=== PATIENT | male | born 1950 | race Caucasian/White ===

== ENCOUNTER → 2016-08-20 | Outpatient (CLI) | payer OTHER ==
[2016-08-20 13:33] LABS: ESTIMATED AVERAGE GLUCOSE 171 mg/dl; HA1C FLAG Normal (Normal)
[2016-08-20 13:36] LABS: ALT/SGPT 37 U/L (12-78); BLOOD UREA NITROGEN 12 mg/dl (7-18); BUN/CREATININE RATIO 12.6 (10-20); CALCIUM 9.3 mg/dl (8.5-10.1); CARBON DIOXIDE 26 mmol/L (21-32); CHLORIDE 101 mmol/L (98-107); CHOLESTEROL 150 mg/dl (0-200); CREATININE 0.95 mg/dl (0.60-1.40); GLUCOSE 209 mg/dl (70-99); POTASSIUM 4.3 mmol/L (3.5-5.1); SODIUM 136 mmol/L (136-145); TRIGLYCERIDES 166 mg/dl (0-150); VERY LOW DENSITY LIPOPROT CALC 33 mg/dl
[2016-08-20 13:46] LABS: ALB/GLOB RATIO 1.2 (0.9-2); ALKALINE PHOSPHATASE 39 U/L (45-117); AST/SGOT 28 U/L (15-37); CHOLESTEROL/HDL RATIO 3.7; HDL CHOLESTEROL 41 mg/dl; LDL CHOLESTEROL CALCULATED 76 mg/dl; THYROID STIMULATING HORMONE 0.801 uIu/ml (0.300-4.500)
== END | disposition home or self-care (01) ==
LOC: C.LABPVFM 08:04
PROVIDERS: ATTEND Nurse Practitioner Family
DX: E78.5 Hyperlipidemia, unspecified (principal); I10 Essential (primary) hypertension; E03.9 Hypothyroidism, unspecified; E11.9 Type 2 diabetes mellitus without complications

== ENCOUNTER → 2016-11-19 | Outpatient (CLI) | payer OTHER ==
[2016-11-19 12:27] LABS: BASO % 0.3 %; BASO ABS # 0.02 K/uL (0-0.2); COMPLETE YES; EOS % 3.7 %; HEMATOCRIT 38.3 % (42-52); IG% 0.3 %; LYMPH % 25.5 %; MEAN CELL VOLUME 86.3 fL (80-100); MEAN CORPUSCULAR HEMOGLOBIN 30.9 pg (25-34); MEAN CORPUSCULAR HGB CONC 35.8 g/dl (32-36); MEAN PLATELET VOLUME 9.8 fL (7.4-10.4); MONO % 9.8 %; NEUT % 60.4 %; PLATELET COUNT 261 K/uL (130-400); RED BLOOD COUNT 4.44 M/uL (4.7-6.1); WHITE BLOOD COUNT 7.07 K/uL (4.8-10.8)
[2016-11-19 12:42] LABS: BLOOD UREA NITROGEN 16 mg/dl (7-18); C-REACTIVE PROTEIN < 0.29 mg/dl (0-0.29); CALCIUM 9.6 mg/dl (8.5-10.1); CARBON DIOXIDE 24 mmol/L (21-32); CHLORIDE 101 mmol/L (98-107); GLUCOSE 278 mg/dl (70-99); POTASSIUM 4.1 mmol/L (3.5-5.1); SODIUM 134 mmol/L (136-145)
[2016-11-19 12:43] LABS: RHEUMATOID FACTOR < 10.0 U/mL (0-15)
[2016-11-19 13:07] LABS: LYME DISEASE AB IGG NEG (NEG)
[2016-11-19 13:10] LABS: LYME DISEASE AB IGM NEG (NEG)
[2016-11-20 08:01] LABS: ESTIMATED AVERAGE GLUCOSE 166 mg/dl; HA1C FLAG Normal (Normal)
--- NOTE | 2016-11-25 10:44 | CODING QUERY MEDICAL NECESSITY ---
SUPPORTING DIAGNOSIS NEEDED Leoncio CELESTE, A supporting diagnosis is required for the test/procedure performed on this patient in order for us to be reimbursed by the patient's insurance. Please provide a supporting diagnosis for the following test/procedure listed below next to the test name along with your signature. *If there is no additional diagnosis for this patient that would support the following test/procedure please document that below next to the test/procedure. Test(s)/Procedure(s) that require a supporting diagnosis: * VITAMIN D ASSAY DIAGNOSIS: DATE OF SERVICE: 11/19/16 Provider Signature: Date: Thank you Kev Gill [facility] Information Management Once completed, please kindly fax back to [phone] For questions please call [phone]
== END | disposition home or self-care (01) ==
LOC: C.LABPVFM 08:37
PROVIDERS: ATTEND Nurse Practitioner Family
DX: E11.9 Type 2 diabetes mellitus without complications (principal); M25.50 Pain in unspecified joint

== ENCOUNTER → 2017-01-18 | Outpatient (CLI) | payer OTHER | END | disposition home or self-care (01) | LOC: C.LABPVFM 07:34 | PROVIDERS: ATTEND Nurse Practitioner Family | DX: E55.9 Vitamin D deficiency, unspecified (principal) ==

== ENCOUNTER → 2017-01-27 | Outpatient (CLI) | payer OTHER | END | disposition home or self-care (01) | LOC: C.LABPVFM 07:36 | PROVIDERS: ATTEND Nurse Practitioner Family | DX: R25.2 Cramp and spasm (principal) ==

== ENCOUNTER → 2017-02-14 | Outpatient (CLI) | payer OTHER ==
[2017-02-14 12:50] LABS: ALT/SGPT 30 U/L (12-78); AST/SGOT 22 U/L (15-37); BLOOD UREA NITROGEN 15 mg/dl (7-18); BUN/CREATININE RATIO 12.2 (10-20); CALCIUM 10.1 mg/dl (8.5-10.1); CARBON DIOXIDE 26 mmol/L (21-32); CHLORIDE 105 mmol/L (98-107); GLUCOSE 195 mg/dl (70-99); POTASSIUM 4.1 mmol/L (3.5-5.1); SODIUM 140 mmol/L (136-145)
[2017-02-14 13:01] LABS: ALB/GLOB RATIO 1.1 (0.9-2); ALKALINE PHOSPHATASE 41 U/L (45-117); PROSTATE SPECIFIC ANTIGEN 0.844 ng/ml (0.000-4.000)
--- NOTE | 2017-02-17 10:31 | CODING QUERY NO DIAGNOSIS ---
: 1950 TREATMENT RENDERED WITHOUT A DIAGNOSIS To promote full compliance with coding requirements relating to patient care, physician participation is requested in all cases of health information coder uncertainty. Please assist us with providing a diagnosis/symptom for the test(s) below: A diagnosis/symptom was not documented on your Order. A valid diagnosis/symptom is required to bill all insurances. Please remember that we are unable to code a diagnosis of rule out, probable, possible, questionable, or suspected. Tests that require a diagnosis: DOS: 02/14/17 * LIPID PROFILE FASTING DIAGNOSIS: * COMPREHENSIVE METABOLC PANEL DIAGNOSIS: * PROSTATE SPECIFIC ANTIGEN DIAGNOSIS: * THYROID STIMULATING HORMONE DIAGNOSIS: * HEMOGLOBIN A1C DIAGNOSIS: Provider Signature: Date: Thank you Sarah Holliday [facility] Information Management Once completed, please kindly fax back to [phone] For questions please call [phone]
== END | disposition home or self-care (01) ==
LOC: C.LABPVFM 07:38
PROVIDERS: ATTEND Nurse Practitioner Family
DX: E78.5 Hyperlipidemia, unspecified (principal); I10 Essential (primary) hypertension; Z12.5 Encounter for screening for malignant neoplasm of prostate; E03.9 Hypothyroidism, unspecified; E11.9 Type 2 diabetes mellitus without complications

== ENCOUNTER → 2017-05-20 | Outpatient (CLI) | payer OTHER ==
[2017-05-20 13:06] LABS: HEMOGLOBIN A1C 8.8 % (4.5-5.6)
== END | disposition home or self-care (01) ==
LOC: C.LABPVFM 09:22
PROVIDERS: ATTEND Nurse Practitioner Family
DX: E11.9 Type 2 diabetes mellitus without complications (principal)

== ENCOUNTER → 2017-05-26 | Outpatient (CLI) | payer OTHER | END | disposition home or self-care (01) | LOC: C.LABPVFM 10:01 | PROVIDERS: ATTEND Nurse Practitioner Family | DX: E11.9 Type 2 diabetes mellitus without complications (principal) ==

== ENCOUNTER → 2017-06-27 | Day surgery (SDC) | payer OTHER ==
[2017-06-14 14:10] VITALS: BMI 33.0
[~2017-06-27] VITALS: Ht 170.2 cm; Wt 98.2 kg
[~2017-06-27] MED LIST: ASPCH81X PO; CHOL2000 PO; GLIM2TAB2 PO; LEVO25TA5 PO; LINA1TAB6 PO; LISI-729 PO; LPR25 PO; NAPR1TAB9 PO; SIMV40TA2 PO; TRIA75TA53 PO
[2017-06-27 08:21] VITALS: Ht 170.2 cm; Wt 98.2 kg
--- NOTE | 2017-06-27 08:41 | Endo History and Physical ---
History & Physical Date of Service: Jun 27, 2017. Chief Complaint: SCREENING Referring Physician: RSUSELL CELESTE History of Present Illness 67 yo CM who presents for screening colonoscopy. Past Surgical History Hx Cardiac Surgery: No Hx Internal Defibrillator: No Hx Pacemaker: No Hx Abdominal Surgery: No Hx of Implantable Prosthesis: No Hx Post-Op Nausea and Vomiting: No Hx Cancer Surgery: No Hx Thoracic Surgery: No Hx Orthopedic: No Hx Urinary Tract Surgery: No Family History None Social History Smoking Status: Never Smoker Hx Substance Use: No Hx Alcohol Use: Yes (OCCASIONALLY) Allergies Coded Allergies: Diphenhydramine (Verified Allergy, Unknown, RASH FROM MED ? RED DYE, ) Current Medications Reported Home Medications Medications Dose Route/Sig Max Daily Dose Days Date Category Vitamin D3 (Cholecalciferol) 2,000 Unit Cap 1 Cap PO QAM 06/14/17 Reported Zocor (Simvastatin) 40 Mg Tab 40 Mg PO QPM 06/14/17 Reported Aleve (Naproxen) 220 Mg Tab 2 Tab PO QAM 06/14/17 Reported Lopressor (Metoprolol Tartrate) 25 Mg Tab 25 Mg PO QAM 06/14/17 Reported Zestril (Lisinopril) 5 Mg Tab 5 Mg PO QAM 06/14/17 Reported Levothyroxine Sodium 25 Mcg Tab 1 Tab PO QAM 06/14/17 Reported Jentadueto (Linagliptin-Metformin Hcl) 1 Tab Tab 1 Tab PO BID 06/14/17 Reported Glimepiride 2 Mg Tab 1 Tab PO BID 06/14/17 Reported Aspirin Chewable (Aspirin) 81 Mg Chew 81 Mg PO QAM 06/14/17 Reported Maxzide 75MG/50MG (Triamterene/HCTZ) Tab 1 Tab PO QAM 06/14/17 Reported Vital Signs Weight (Kilograms): 98.18 Height (Feet): 5 Height (Inches): 7 Date Time Temp Pulse Resp B/P (MAP) Pulse Ox O2 Delivery O2 Flow Rate FiO2 06/27/17 08:33 36.8 79 18 154/91 (112) 96 Room Air Physical Exam General Appearance: WD/WN, no apparent distress Respiratory/Chest: Auscultation: breath sounds normal Cardiovascular: Heart Auscultation: RRR Abdomen: Bowel Sounds: normal Inspection & Palpation: soft, non-distended, no tenderness, guarding & rebound Assessment and Plan Assessment: 67 yo CM who presents for screening colonoscopy. Plan: Proceed with colonoscopy.
--- NOTE | 2017-06-27 09:06 | Discharge Instructions ---
Endoscopy Patient Instructions Date / Procedure(s) Performed Jun 27, 2017. Colonoscopy Allergy Information Coded Allergies: Diphenhydramine (Verified Allergy, Unknown, RASH FROM MED ? RED DYE, ) Discharge Date / Findings Jun 27, 2017. Diverticulosis Internal hemorrhoids Medication Instructions Stopped Medication(s): NONE TAKEN OK to resume all medications today as prescribed Reported Home Medications Medications Dose Route/Sig Max Daily Dose Days Date Category Vitamin D3 (Cholecalciferol) 2,000 Unit Cap 1 Cap PO QAM 06/14/17 Reported Zocor (Simvastatin) 40 Mg Tab 40 Mg PO QPM 06/14/17 Reported Aleve (Naproxen) 220 Mg Tab 2 Tab PO QAM 06/14/17 Reported Lopressor (Metoprolol Tartrate) 25 Mg Tab 25 Mg PO QAM 06/14/17 Reported Zestril (Lisinopril) 5 Mg Tab 5 Mg PO QAM 06/14/17 Reported Levothyroxine Sodium 25 Mcg Tab 1 Tab PO QAM 06/14/17 Reported Jentadueto (Linagliptin-Metformin Hcl) 1 Tab Tab 1 Tab PO BID 06/14/17 Reported Glimepiride 2 Mg Tab 1 Tab PO BID 06/14/17 Reported Aspirin Chewable (Aspirin) 81 Mg Chew 81 Mg PO QAM 06/14/17 Reported Maxzide 75MG/50MG (Triamterene/HCTZ) Tab 1 Tab PO QAM 06/14/17 Reported Provider Instructions Activity Restrictions - No exercising or heavy lifting for 24 hours. - Do not drink alcohol the day of the procedure. - Do not drive a car or operate machinery until the day after the procedure. - Do not make any important decisions or sign important papers in 24 hours after the procedure. Following Day: - Return to full activity which may include returning to work/school. Diet Start your diet with liquids and light foods (jello, soup, juice, toast). Then eat your usual diet if not nauseated. Treatment For Common After Affects For mild abdominal pain, bloating, or excessive gas: - Rest - Eat lightly - Lie on right side Follow-Up Information Follow-up with RUSSELL CELESTE as scheduled Anesthesia Information What You Should Know You have had a procedure that required some medicine to reduce anxiety and discomfort. This treatment is called moderate sedation. After receiving the treatment, you may be sleepy, but you will be able to breathe on your own. The effects of the treatment may last for several hours. Follow these instructions along with Activity/Diet recommendations noted above: * Do NOT do anything where dizziness or clumsiness would be dangerous. * Rest quietly at home today, then you can be up and about tomorrow. * Have a responsible person stay with you the rest of today. * You may have had an I.V. today. If so, you may take the dressing off later today. Recommendations Call your doctor if: * Trouble breathing * Continuous vomiting for more than 24 hours * Temperature above 101 degrees * Severe abdominal pain or bloating * Pain not relieved by pain medicine ordered * There is increased drainage or redness from any incision * A large amount of rectal bleeding greater than 2-3 tablespoons. (If you had a polyp/s removed or have hemorrhoids, a small amount of blood - from the rectum is to be expected.) * You have any unanswered questions or concerns. IN THE EVENT OF A SERIOUS EMERGENCY, GO TO THE NEAREST EMERGENCY ROOM Your discharge instructions were prepared by provider Eric Washburn. Patient Instructions Signature Page Omar Echevarria Patient (or Guardian) Signature/Date: I have read and understand the instructions given to me by my caregivers. Caregiver/RN/Doctor Signature/Date: The above-named patient and/or guardian has received patient instructions on this date. + Original Patient Signature Page (only) stays with chart. Please make copy for patient.
--- NOTE | 2017-06-27 09:09 | GI REPORT ---
Procedure Date: 06/27/2017 8:43 AM Procedure: Colonoscopy Indications: Screening for colorectal malignant neoplasm Medicines: Monitored Anesthesia Care Complications: No immediate complications. Estimated Blood Loss: Estimated blood loss: none. Procedure: Pre-Anesthesia Assessment: - Prior to the procedure, a History and Physical was performed, and patient medications and allergies were reviewed. The patient's tolerance of previous anesthesia was also reviewed. The risks and benefits of the procedure and the sedation options and risks were discussed with the patient. All questions were answered, and informed consent was obtained. Prior Anticoagulants: The patient has taken no previous anticoagulant or antiplatelet agents. ASA Grade Assessment: II - A patient with mild systemic disease. After reviewing the risks and benefits, the patient was deemed in satisfactory condition to undergo the procedure. After I obtained informed consent, the scope was passed under direct vision. Throughout the procedure, the patient's blood pressure, pulse, and oxygen saturations were monitored continuously. The scope was introduced through the anus and advanced to the terminal ileum. The colonoscopy was performed without difficulty. The patient tolerated the procedure well. The quality of the bowel preparation was good. The terminal ileum, ileocecal valve, appendiceal orifice, and rectum were photographed. Findings: The perianal and digital rectal examinations were normal. Scattered small-mouthed diverticula were found in the entire colon. Non-bleeding internal hemorrhoids were found during retroflexion. The hemorrhoids were small. Impression: - Diverticulosis in the entire examined colon. - Non-bleeding internal hemorrhoids. - No specimens collected. Recommendation: - Resume previous diet. - Continue present medications. - Repeat colonoscopy in 10 years for surveillance. - Return to primary care physician as previously scheduled. Eric Washburn, DO 06/27/2017 9:09:07 AM This report has been signed electronically. Note Initiated On: 06/27/2017 8:43 AM I attest to the content of the Intraoperative Record and orders documented therein, exceptions below
--- NOTE | 2017-06-27 09:21 | Anesthesiology Progress Note ---
Anesthesia Post Op Note Date & Time Jun 27, 2017 at 09:21 Vital Signs Pain Intensity: 0 Vital Signs Past 12 Hours Date Time Temp Pulse Resp B/P (MAP) Pulse Ox O2 Delivery O2 Flow Rate FiO2 06/27/17 09:06 65 16 105/63 (77) 96 Room Air 06/27/17 08:33 36.8 79 18 154/91 (112) 96 Room Air Notes Mental Status: alert / awake / arousable, participated in evaluation Pt Amnestic to Procedure: Yes Nausea / Vomiting: adequately controlled Pain: adequately controlled Airway Patency, RR, SpO2: stable & adequate BP & HR: stable & adequate Hydration State: stable & adequate Anesthetic Complications: no major complications apparent Awake, doing well, VSS.
[2017-06-27 09:36] VITALS: BP 149/99; PULSE 69; O2SAT 98
== END | disposition home or self-care (01) ==
LOC: C.GI 08:02
PROVIDERS: ATTEND Internal Medicine
DX: Z12.11 Encounter for screening for malignant neoplasm of colon (principal); K57.30 Diverticulosis of large intestine without perforation or abscess without bleeding; K64.8 Other hemorrhoids

== ENCOUNTER → 2017-08-17 | Outpatient (CLI) | payer OTHER ==
[2017-08-17 14:02] LABS: HEMOGLOBIN A1C 8.3 % (4.5-5.6)
[2017-08-17 14:33] LABS: CARBON DIOXIDE 23 mmol/L (21-32); CHOLESTEROL 141 mg/dl (0-200); CREATININE 1.12 mg/dl (0.60-1.40)
[2017-08-17 14:34] LABS: BLOOD UREA NITROGEN 19 mg/dl (7-18); CALCIUM 9.2 mg/dl (8.5-10.1); GLUCOSE 219 mg/dl (70-99); SODIUM 136 mmol/L (136-145)
== END | disposition home or self-care (01) ==
LOC: C.LABPVFM 07:20
PROVIDERS: ATTEND Nurse Practitioner Family
DX: E11.9 Type 2 diabetes mellitus without complications (principal); I10 Essential (primary) hypertension; E78.5 Hyperlipidemia, unspecified; E03.9 Hypothyroidism, unspecified

== ENCOUNTER → 2017-12-13 | Outpatient (CLI) | payer OTHER ==
--- NOTE | 2017-12-13 09:21 | DIAGNOSTIC IMAGING REPORT ---
L HAND MIN 3 VIEWS ROUTINE CLINICAL HISTORY: M79.641,M79.642,E11.9 LEFT HAND PAIN COMPARISON: None. DISCUSSION: The bony mineralization appears normal. No acute fractures are visualized. There are mild osteoarthritic changes most pronounced the level of the first carpometacarpal joint and interphalangeal joint of the thumb. There is an equivocal radial styloid erosion. IMPRESSION: 1. No acute fractures 2. Osteoarthritic changes involving the thumb 3. Equivocal erosion involving the radial styloid Electronically signed by: Scott Gallagher M.D. 12/13/2017 9:20 AM Dictated Date/Time: 12/13/2017 9:18 AM
--- NOTE | 2017-12-13 09:23 | DIAGNOSTIC IMAGING REPORT ---
LEFT FOOT 3 VIEWS CLINICAL HISTORY: Metatarsalgia. FINDINGS: 3 views of the left foot are obtained. No prior studies are available for comparison at the time of dictation. The skeletal structures are well mineralized. No fracture is seen. Mild arthritic change and bony overgrowth is seen at the first metatarsophalangeal joint. There is no radiographic evidence of Lisfranc injury. There are small dorsal and plantar calcaneal enthesophytes. No erosive disease is identified. Degenerative spurring is noted along the dorsal aspect of the tarsal bones. The overlying soft tissues are normal in appearance. IMPRESSION: Mild degenerative change and heel spurs as above. No acute osseous abnormality is seen. Electronically signed by: Cj Monae M.D. 12/13/2017 9:22 AM Dictated Date/Time: 12/13/2017 9:21 AM
--- NOTE | 2017-12-13 09:30 | DIAGNOSTIC IMAGING REPORT ---
R HAND MIN 3 VIEWS ROUTINE CLINICAL HISTORY: E11.9 Type 2 diabetes [id number] right hand pain COMPARISON: None. DISCUSSION: No acute fractures or dislocations are visualized. There is a small 3.5 mm cyst with nonaggressive characteristics involving the base of the middle phalanx of the fourth finger. Within the wrist, there are suspected cysts within the lunate and scaphoid, possibly a degenerative basis. There are moderate arthritic changes present within the wrist. The wrist is not well evaluated on the current study. There appears to be mild capitate subsidence and possibly widening of the scapholunate distance. IMPRESSION: 1. Although not well visualized on this examination of the hand, there appear to be significant arthritic changes present within the wrist with mild capitate subsidence, possibly widening of scapholunate distance, and lunate and scaphoid cysts. 2. No acute fractures or dislocations identified. Electronically signed by: Scott Gallagher M.D. 12/13/2017 9:29 AM Dictated Date/Time: 12/13/2017 9:24 AM
[2017-12-13 10:10] LABS: TRANSFERRIN 318 mg/dl (200-360)
== END | disposition home or self-care (01) ==
LOC: C.RAD1850 08:50
PROVIDERS: ATTEND Internal Medicine Rheumatology
DX: M77.40 Metatarsalgia, unspecified foot (principal); E11.9 Type 2 diabetes mellitus without complications; M79.641 Pain in right hand; M79.642 Pain in left hand; M77.32 Calcaneal spur, left foot; M18.12 Unilateral primary osteoarthritis of first carpometacarpal joint, left hand